=== PATIENT | female | born 1955 | race Caucasian/White ===

== ENCOUNTER 2018-02-12 20:17 | Observation (INO) ==
[2018-02-12] MEDS ORDERED: *HR* Morphine 2 MG/ML SYRINGE IVP ONE ×2 (20:38→21:46)
[2018-02-12] MEDS ORDERED: Aspirin 81 MG TAB.CHEW PO STA (20:38)
--- NOTE | 2018-02-12 20:40 | Emergency Department Note ---
Disposition Clinical Impression: Chest pain Disposition: Admitted As Inpatient Condition: Good Chest Pain HPI - General Chief Complaint: ED Chest Pain Stated Complaint: chest feels really heavy Time Seen by Provider: 02/12/18 20:25 Source: patient Mode of arrival: private vehicle Limitations: no limitations Vital Signs Reviewed: Yes Nursing Notes Reviewed: Yes - History of Present Illness HPI Narrative: 62-year-old white female presents emergency department via private vehicle complaining that her chest feels heavy. She says for the last 4 days she feels like she is having trouble getting fluid off her legs. She says she has a history of congestive heart failure in the past, but this evening started feeling like she was having heaviness in her chest. She says it feels like someone is pressing on her. She has had no known coronary artery disease. She says that she has seen a male infertility specialist in [place], but does not really see him that often. - Related Data Home Medications Medication Instructions Recorded Confirmed Furosemide [Lasix] 40 mg PO BID 12/31/15 02/12/18 Gabapentin [Neurontin] 600 mg PO QID 12/31/15 02/12/18 Glimepiride [Amaryl] 2 mg PO DAILY 12/31/15 02/12/18 Losartan [Cozaar] 25 mg PO DAILY 12/31/15 02/12/18 Pravastatin Sodium [Pravachol] 20 mg PO DAILY 12/31/15 02/12/18 Sertraline [Zoloft] 50 mg PO TID 12/31/15 02/12/18 Topiramate [Topamax] 50 mg PO DAILY 12/31/15 02/12/18 metFORMIN [Glucophage] 500 mg PO BID 12/31/15 02/12/18 Aclidinium [place] [Tudorza 400 mcg IH BID 10/27/16 02/12/18 Pressair] Dicyclomine [Bentyl] 20 mg PO TID 05/03/17 02/12/18 Previous Rx's Medication Instructions Recorded Ibuprofen [Motrin] 800 mg PO Q8HR #15 tablet 06/03/17 Tiotropium [Spiriva] 18 mcg IH DAILY #1 capsule 07/18/17 Allergies Allergy/AdvReac Type Severity Reaction Status Date / Time moxifloxacin [From Avelox] Allergy Rash Verified 02/12/18 20:33 acetaminophen [From Vicodin] AdvReac Gastrointestinal Verified 02/12/18 20:33 Upset hydrocodone [From Vicodin] AdvReac Gastrointestinal Verified 02/12/18 20:33 Upset All systems ED: reviewed and negative except as stated. Constitutional: Denies: fever, chills, weakness, weight change Eyes: Denies: eye pain, eye discharge, vision change ENT ED: Denies: ear pain, throat pain, dental pain, hearing loss, epistaxis, congestion, dysphagia Cardiovascular: Reports: chest pain Respiratory: Reports: dyspnea Gastrointestinal: Denies: abdominal pain, nausea, vomiting, diarrhea, constipation, hematemesis, melena, hematochezia Genitourinary: Denies: dysuria, frequency, hematuria, discharge Musculoskeletal: Denies: back pain, neck pain, arthralgia, myalgia Integumentary: Denies: rash, abrasion, lesions Neurological: Denies: headache, weakness, numbness, paresthesias, confusion, abnormal gait, vertigo Psychiatric: Denies: anxiety, depression, suicidal thoughts, homicidal thoughts , auditory hallucinations, visual hallucinations Endocrine: Denies: fatigue Hematological/Lymphatic: Denies: easy bleeding, easy bruising Allergic/Immunologic: Denies: facial swelling, urticaria Chest Pain PMH - Past Medical History Medical history: Reports: arthritis, CHF, COPD, coronary artery disease, diabetes, fibromyalgia, hepatitis Psychiatric history: Reports: anxiety, depression [employer] WORK[employer] history: Reports: no [employer] WORK[employer] history - Social History Smoking Status: Current every day smoker Alcohol use: Reports: none Drug use: Reports: none Physical Exam - General Limitations: no limitations General appearance: alert, in no apparent distress - Head Head exam: atraumatic, normocephalic, normal inspection - Eye Eye exam: Present: normal appearance, PERRL, EOMI - ENT ENT exam: normal exam, normal oropharynx, mucous membranes moist - Neck Neck exam: Present: normal inspection, full ROM, trachea midline - Chest Chest inspection: Present: normal inspection, symmetric chest wall rise, tenderness, other (Palpation of her anterior chest wall causes her some discomfort, but does not reproduce her symptoms.) - Respiratory Respiratory exam: Present: normal lung sounds bilaterally - Cardiovascular Cardiovascular exam: Present: regular rate, normal rhythm, normal heart sounds - Abdominal Exam Abdominal exam: Present: soft, Non-Tender. Absent: tenderness, distention, guarding, rebound, rigidity, organomegaly, pulsatile mass - Extremities Exam Extremities exam: Present: normal inspection, full ROM. Absent: tenderness, pedal edema - Back Exam Back exam: Present: normal inspection, full ROM. Absent: tenderness - Neurological Exam Neurological exam: Present: alert, oriented X3 - Psychiatric Psychiatric exam: Present: normal affect, normal mood - Skin Skin exam: Present: warm, dry, intact, normal color Course Course Narrative: The patient remained stable throughout her emergency department stay. Following her morphine and nitroglycerin the patient is pain-free at the time of disposition. Paged Dr. Adams at [phone]. The patient will be observed here in [place] Vital Signs Temperature 97.0 F L 02/12/18 20:33 Pulse Rate 94 02/12/18 20:33 Respiratory Rate 14 02/12/18 20:33 Blood Pressure 126/77 02/12/18 20:33 O2 Sat by Pulse Oximetry 97 02/12/18 20:33 Temperature 97.0 F L 02/12/18 20:33 Pulse Rate 85 02/12/18 22:54 Respiratory Rate 14 02/12/18 22:54 Blood Pressure 100/43 02/12/18 22:54 O2 Sat by Pulse Oximetry 94 02/12/18 22:54 Oxygen Delivery Oxygen Delivery Room Air Chest Pain - Lab Data Lab results reviewed: Yes I reviewed the patient's lab results. Result diagrams: 02/12/18 20:50 02/12/18 20:50 Lab Results 02/12/18 02/12/18 02/12/18 Range/Units 20:50 20:50 20:50 WBC 8.8 (4.3-11.1) K/mcL RBC 4.65 (3.82-4.97) M/mcL Hgb 13.6 (11.5-15.4) g/dL Hct 42.3 (35.3-44.9) % MCV 91.0 (83.0-100.0) fL MCH 29.2 (28.0-33.3) pg MCHC 32.2 (31.6-35.5) g/dL RDW 14.6 H (11.5-14.5) % Plt Count 201 (140-400) K/mcL MPV 9.8 (9.4-12.4) fL Immature Gran % 0.5 (0-4) % Seg Neutrophils % 61.6 % Lymphocytes % 28.5 % Monocytes % 7.6 % Eosinophils % 1.2 % Basophils % 0.6 % Neutrophils # 5.4 (1.6-8.9) K/mcL Lymphocytes # 2.5 (0.6-4.6) K/mcL Monocytes # 0.7 (0.0-1.3) K/mcL Eosinophils # 0.1 (0.0-0.6) K/mcL Basophils # 0.1 (0.0-0.2) K/mcL PT (9.4-12.1) Seconds INR Sodium 137 (136-145) mEq/L Potassium 4.1 (3.5-5.1) mEq/L Chloride 101 (98-107) mEq/L Carbon Dioxide 27 (23-29) mEq/L BUN 17 (8-23) mg/dL Creatinine 0.87 (0.60-1.20) mg/dL Est GFR ( Amer) > 60 (> 60) Est GFR (Non-Af Amer) > 60 (> 60) BUN/Creatinine Ratio 20 (6-26) Glucose 156 H (70-105) mg/dL Calculated Osmolality 289 (280-300) Calcium 9.5 (8.6-10.3) mg/dL Total Bilirubin 0.4 (0.3-1.0) mg/dL AST 74 H (13-39) Units/L ALT 56 H (7-52) Units/L Alkaline Phosphatase 108 H (34-104) Units/L Troponin I (< 0.04) ng/mL B-Natriuretic Peptide 98 (Less than 100) pg/mL Serum Total Protein 7.1 (6.4-8.9) g/dL Albumin 4.0 (3.5-5.7) g/dL Globulin 3.1 (2.4-3.5) g/dL Albumin/Globulin Ratio 1.3 (1.1-2.2) 02/12/18 02/12/18 Range/Units 20:50 20:50 WBC (4.3-11.1) K/mcL RBC (3.82-4.97) M/mcL Hgb (11.5-15.4) g/dL Hct (35.3-44.9) % MCV (83.0-100.0) fL MCH (28.0-33.3) pg MCHC (31.6-35.5) g/dL RDW (11.5-14.5) % Plt Count (140-400) K/mcL MPV (9.4-12.4) fL Immature Gran % (0-4) % Seg Neutrophils % % Lymphocytes % % Monocytes % % Eosinophils % % Basophils % % Neutrophils # (1.6-8.9) K/mcL Lymphocytes # (0.6-4.6) K/mcL Monocytes # (0.0-1.3) K/mcL Eosinophils # (0.0-0.6) K/mcL Basophils # (0.0-0.2) K/mcL PT 12.1 (9.4-12.1) Seconds INR 1.1 Sodium (136-145) mEq/L Potassium (3.5-5.1) mEq/L Chloride (98-107) mEq/L Carbon Dioxide (23-29) mEq/L BUN (8-23) mg/dL Creatinine (0.60-1.20) mg/dL Est GFR ( Amer) (> 60) Est GFR (Non-Af Amer) (> 60) BUN/Creatinine Ratio (6-26) Glucose (70-105) mg/dL Calculated Osmolality (280-300) Calcium (8.6-10.3) mg/dL Total Bilirubin (0.3-1.0) mg/dL AST (13-39) Units/L ALT (7-52) Units/L Alkaline Phosphatase (34-104) Units/L Troponin I < 0.03 (< 0.04) ng/mL B-Natriuretic Peptide (Less than 100) pg/mL Serum Total Protein (6.4-8.9) g/dL Albumin (3.5-5.7) g/dL Globulin (2.4-3.5) g/dL Albumin/Globulin Ratio (1.1-2.2) - Radiology Data Radiology results reviewed: Yes I reviewed the patient's radiology results. One view chest: IMPRESSION: 1. No focal airspace disease identified. D/ / Reggie Grier MD / Reggie Grier MD Interpreting Provider: Reggie Grier MD - EKG Data EKG attestation: Yes I reviewed and interpreted this EKG. EKG results narrative: Twelve-lead EKG showed a right bundle-branch block, left axis deviation, rate 97 , no acute ST elevation or depression appreciated. Heart Score - Score History: Slightly Suspicious EKG: Normal Age: 45-65 Risk Factors: 1-2 risk factors Troponin: Less than normal limit HEART Score Total: 2
[2018-02-12 20:56] LABS: Basophils # 0.1 K/mcL (0.0-0.2); Basophils % 0.6 %; Eosinophils # 0.1 K/mcL (0.0-0.6); Eosinophils % 1.2 %; Hematocrit 42.3 % (35.3-44.9); Hemoglobin 13.6 g/dL (11.5-15.4); Immature Granulocytes % 0.5 % (0-4); Lymphocytes # 2.5 K/mcL (0.6-4.6); Lymphocytes % 28.5 %; Mean Corpuscular HGB Conc 32.2 g/dL (31.6-35.5); Mean Corpuscular Hemoglobin 29.2 pg (28.0-33.3); Mean Platelet Volume 9.8 fL (9.4-12.4); Monocytes # 0.7 K/mcL (0.0-1.3); Monocytes % 7.6 %; Neutrophils # 5.4 K/mcL (1.6-8.9); Platelet Count 201 K/mcL (140-400); Red Blood Count 4.65 M/mcL (3.82-4.97); Red Cell Distribution Width 14.6 % (11.5-14.5); Segmented Neutrophils % 61.6 %
[2018-02-12 21:03] LABS: INR 1.1; Prothrombin Time 12.1 Seconds (9.4-12.1)
[2018-02-12 21:20] LABS: Alanine Aminotransferase 56 Units/L (7-52); Albumin/Globulin Ratio 1.3 (1.1-2.2); Alkaline Phosphatase 108 Units/L (34-104); Aspartate Amino Transferase 74 Units/L (13-39); BUN/Creatinine Ratio 20 (6-26); Bilirubin,Total 0.4 mg/dL (0.3-1.0); Blood Urea Nitrogen 17 mg/dL (8-23); Calcium 9.5 mg/dL (8.6-10.3); Carbon Dioxide 27 mEq/L (23-29); Chloride 101 mEq/L (98-107); Globulin 3.1 g/dL (2.4-3.5); Glucose 156 mg/dL (70-105); Osmolality,Calculated 289 (280-300); Potassium 4.1 mEq/L (3.5-5.1); Sodium 137 mEq/L (136-145); Total Protein 7.1 g/dL (6.4-8.9); eGFR For African Americans > 60 (> 60); eGFR For Non-African Americans > 60 (> 60)
[2018-02-12] MEDS ORDERED: Nitroglycerin 1 INCH/GM PACKET TP ONE (21:46)
[2018-02-12] MEDS ORDERED: Naloxone 0.4 MG/ML INJ IVP PRN (23:10)
[2018-02-13] MEDS ORDERED: Ibuprofen 800 MG TABLET PO SCH
[2018-02-13] MEDS ORDERED: Tolterodine LA (24 HR) 2 MG CAP.ER.24H PO SCH (00:20)
[2018-02-13] MEDS ORDERED: Ibuprofen 800 MG TABLET PO PRN (00:21)
[2018-02-13] MEDS: Gabapentin 300 MG CAPSULE PO SCH ×2 (00:35→08:50)
[2018-02-13 03:36] LABS: Basophils # 0.1 K/mcL (0.0-0.2); Basophils % 0.6 %; Eosinophils # 0.1 K/mcL (0.0-0.6); Eosinophils % 1.4 %; Hematocrit 38.3 % (35.3-44.9); Hemoglobin 12.2 g/dL (11.5-15.4); Immature Granulocytes % 0.4 % (0-4); Lymphocytes # 2.9 K/mcL (0.6-4.6); Lymphocytes % 32.2 %; Mean Corpuscular HGB Conc 31.9 g/dL (31.6-35.5); Mean Corpuscular Hemoglobin 29.3 pg (28.0-33.3); Mean Corpuscular Volume 92.1 fL (83.0-100.0); Mean Platelet Volume 9.5 fL (9.4-12.4); Monocytes # 0.7 K/mcL (0.0-1.3); Monocytes % 8.2 %; Neutrophils # 5.1 K/mcL (1.6-8.9); Platelet Count 197 K/mcL (140-400); Red Blood Count 4.16 M/mcL (3.82-4.97); Red Cell Distribution Width 14.7 % (11.5-14.5); Segmented Neutrophils % 57.2 %
[2018-02-13 03:38] LABS: INR 1.1; Prothrombin Time 12.3 Seconds (9.4-12.1)
[2018-02-13] MEDS ORDERED: *HR* Enoxaparin 40 MG/0.4 ML SYRINGE SQ SCH (07:00)
[2018-02-13] MEDS ORDERED: *HR* Metformin 500 MG TABLET PO SCH (08:00)
[2018-02-13] MEDS ORDERED: Furosemide 40 MG TABLET PO SCH ×2 (08:00→09:00)
[2018-02-13] MEDS ORDERED: *HR* Glimepiride 2 MG TABLET PO SCH (08:00)
[2018-02-13 08:33] VITALS: BP 108/67
[2018-02-13] MEDS ORDERED: Tiotropium 18 MCG inhalation IH SCH (09:00)
[2018-02-13] MEDS ORDERED: Gabapentin 300 MG CAPSULE PO SCH (09:00)
[2018-02-13] MEDS ORDERED: Topiramate 25 MG TABLET PO SCH (09:00)
[2018-02-13] MEDS ORDERED: Tudorza Pressair 400 MCG IH SCH (10:00)
--- NOTE | 2018-02-13 10:35 | Internal Med History&Physical ---
Date of Encounter: 02/13/18 Time of Encounter: 09:00 Assessment and Plan (1) Chest pain Current visit: Yes Status: Acute Since repeat EKG is unchanged and she has had no pressure as well as negative troponins 2, if the third troponin is negative will discharge to home and outpatient follow-up. She needs to have a stress test and echocardiogram to evaluate but we are unable to obtain these, here. I suspect that all she was experiencing was a worsening of her congestive heart failure caused by her trip to [place]. Qualifiers: Chest pain type: unspecified Qualified Code(s): R07.9 - Chest pain, unspecified (2) Congestive heart failure Current visit: Yes Status: Acute Qualifiers: Heart failure type: unspecified Heart failure chronicity: chronic Qualified Code(s): I50.9 - Heart failure, unspecified (3) Diabetes mellitus Current visit: Yes Status: Acute This is stable per patient no continue home regimen. 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 No known cirrhosis. Follow-up per primary care physician. Qualifiers: Viral hepatitis chronicity: chronic Hepatic coma status: without hepatic coma Qualified Code(s): B18.2 - Chronic viral hepatitis C (5) Right bundle branch block Current visit: Yes Status: Acute Apparently chronic. Internal Medicine - H&P: HPI Chief complaint: Chest heaviness. Admitted From: Home Plans for Post Hospital Care: Home History of present illness: Ms. Garcia is a 62 year old female with history of congestive heart failure who has 4 days of worsening edema at her lower extremities. This is been present for longer than that, if he considered that she had it for several days on a mild scale, before her trip to [place]. She then spent a 4 or 5 days. In [place] where she ate a little more than is her usual in terms. The edema was slightly worse there but severe after a flight back. She had no chest pressure during that time. She states that at about noon yesterday, she had pressure on her chest which felt like "an elephant sitting on my chest." This was intermittent and progressive, radiated to Left arm but was associated with dyspnea and diaphoresis, intermittently. She knows of no cough or respiratory symptoms, diarrhea, other infectious symptoms, fevers or chills. The chest pressure was relieved by medications in the emergency room and has had absolutely none while in the hospital. She has a history of heart failure, about 4 or 5 years ago, with a stress test and an echocardiogram gram at that point. She takes Lasix 120 mg in the morning and 40 mg in the evening, for this. She had been followed by Dr. Avilez (skyelling?) at [facility] but could not afford her co-pay so she has been on the following with her primary care physician, Dr. Ayoub. She has no history of coronary artery disease. She has a history of hypertension for years, for which she takes valsartan. She has hyperlipidemia. She was diagnosed with sleep apnea about 2 years ago and has been on CPAP since then. She has no history of arrhythmia. She has been diabetic on Glucophage she thinks 800 mg twice a day but no insulin. She has hepatitis C that has been treated twice without success. She knows of no cirrhosis or liver problems, related. 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 She denies alcohol use. She continues to smoke. I spoke at length with her about discontinuing smoking and having her and grandson no longer smoke in the house. I also informed her that she needed to get rid of all of the smoking apparatus functions. She is status post hysterectomy when she was in her 30s or 40s. She states this was complete. She has also had a cholecystectomy without cholecystitis. . She has been markedly overweight all of her life. She has early cataracts in both eyes. Patient has no complaint of chest discomfort, dyspnea, orthopnea, breathing problems, palpitations, nausea or vomiting, constipation or diarrhea, other changes in bowel habits, heartburn, difficulty with urination, kidney problems or kidney stones, fevers chills or sweats, rash or itching, seizures, headache or lightheadedness, heat or cold intolerance, blood problems or anemia, or other new complaints, except as mentioned above. Review of systems is otherwise negative. Past Med Surg Social Fam HX - Past Medical History Medical history: arthritis, CHF, COPD, coronary artery disease, diabetes, fibromyalgia, hepatitis, hyperlipidemia, hypertension Psychiatric history: anxiety, depression - Past Surgical History Surgical History: cholecystectomy, hysterectomy - Social History Smoking Status: Current every day smoker Packs per day: 1 pack Smokeless Tobacco Status: No Alcohol use: none Drug use: none - Family History Mother Living Status: Hx Family Endocrine Disorder: Yes Father Living Status: Hx Family Cancer: Yes Internal Medicine - H&P: Meds Furosemide [Lasix] 120 mg PO 0900 12/31/15 [History] Gabapentin [Neurontin] 600 mg PO QID 12/31/15 [History] Glimepiride [Amaryl] 2 mg PO DAILY 12/31/15 [History] Losartan [Cozaar] 25 mg PO DAILY 12/31/15 [History] Pravastatin Sodium [Pravachol] 20 mg PO DAILY 12/31/15 [History] Sertraline [Zoloft] 150 mg PO DAILY 12/31/15 [History] metFORMIN [Glucophage] 500 mg PO BID 12/31/15 [History] Tiotropium [Spiriva] 18 mcg IH DAILY #1 capsule 07/18/17 [Rx] Ibuprofen [Motrin] 800 mg PO Q8HR PRN 02/12/18 [History] Tolterodine LA (24 HR) [Detrol LA] 4 mg PO DAILY 02/13/18 [History] 3 Allergy/AdvReac Type Severity Reaction Status Date / Time moxifloxacin [From Avelox] Allergy Rash Verified 02/12/18 20:33 acetaminophen [From Vicodin] AdvReac Gastrointestinal Verified 02/12/18 20:33 Upset hydrocodone [From Vicodin] AdvReac Gastrointestinal Verified 02/12/18 20:33 Upset All Systems PM: A 10-system review of systems was performed and is negative for pertinent findings except as documented above in the HPI. - Constitutional Vitals: Temp Pulse Resp BP Pulse Ox 98.1 F 67 16 108/67 95 02/13/18 08:00 02/13/18 08:00 02/13/18 08:00 02/13/18 08:00 02/13/18 08:00 Exam: Examination: (Except as mentioned above): General: In no apparent distress, alert and oriented 3. Head: Atraumatic and normocephalic. Eyes: Extraocular muscles are intact, pupils equal round and reactive to light and accommodation. Sclerae anicteric. Ears: External ears are normal to inspection and hearing is grossly normal. Nose: Patent without lesion noted. Mouth: No intraoral lesions seen. Dentition is unremarkable. Neck: Supple with trachea midline. There is no thyromegaly or adenopathy and carotids are 2+ without bruit heard. Respiratory: No use of accessory muscles. Lungs are clear throughout. Normal airflow. Cardiovascular: Regular rate and rhythm without murmur appreciated. Abdomen: Bowel sounds are normal. No hepatosplenomegaly masses or tenderness. Morbidly obese and therefore difficult to palpate deeply. Extremities: No cyanosis or clubbing. She has 1-2+ edema, at ankles bilaterally. No cord or calf tenderness. Nothing to suggest cellulitis.. Neurological: A and O 3. Cranial nerves II through XII are intact. No focal deficits and no abnormal movements or postures. Skin: Warm and non-diaphoretic with no lesions noted. Breasts, pelvic and rectal: Not examined. Internal Med - H&P Results - Labs CBC & Chem 7: 02/13/18 03:12 02/12/18 20:50 Labs: Short CBC 02/13/18 Range/Units 03:12 WBC 9.0 (4.3-11.1) K/mcL Hgb 12.2 (11.5-15.4) g/dL Hct 38.3 (35.3-44.9) % Plt Count 197 (140-400) K/mcL Neutrophils # 5.1 (1.6-8.9) K/mcL Cardiac Enzymes 02/13/18 02/13/18 Range/Units 03:12 08:58 Troponin I < 0.03 < 0.03 (< 0.04) ng/mL
--- NOTE | 2018-02-13 11:07 | Discharge Summary ---
- NOTES TO OUTPATIENT PROVIDER Notes to Outpatient Provider: Patient is instructed to follow-up with cardiology. She wants to meet with edgerman in [facility] in anticipation of her left knee pain and probable left knee replacement by johanna Andrade. This will be called to her house, per [facility] cardiology. Orders not resulted at time of discharge: Pending orders 02/13/18 10:33 EKG [ECG 12 lead ECG] [ECG] Routine Date of Encounter: 02/13/18 Time of Encounter: 11:06 - Discharge Diagnosis (1) Chest pain Priority: Primary Status: Acute Qualifiers: Chest pain type: unspecified Qualified Code(s): R07.9 - Chest pain, unspecified (2) Congestive heart failure Priority: Secondary Status: Acute Qualifiers: Heart failure type: unspecified Heart failure chronicity: chronic Qualified Code(s): I50.9 - Heart failure, unspecified (3) Diabetes mellitus Priority: Secondary Status: Acute Qualifiers: Diabetes mellitus type: type 2 Diabetes mellitus skilled nursing insulin use: without intermediate card tender use Diabetes mellitus complication status: with unspecified complications Qualified Code(s): E11.8 - Type 2 diabetes mellitus with unspecified complications (4) Hepatitis C Priority: Secondary Status: Acute Qualifiers: Viral hepatitis chronicity: chronic Hepatic coma status: without hepatic coma Qualified Code(s): B18.2 - Chronic viral hepatitis C (5) Right bundle branch block Priority: Secondary Status: Acute Hospital course: Ms. Garcia is a 62 year old female Discharge discussed with: patient Time spent discussing smoking cessation with patient: 3 to 10 minutes - Time Spent with Patient Total time spent providing and/or coordinating discharge services: Specific discharge activities: Patient instructed to take 80 mg of Lasix in the evening until seen by her family physician, in a week. - Discharge Medications Prescriptions: Furosemide Oral Soln [Lasix] 80 mg PO DAILY #1 [facility] [place] Home Medications: Furosemide [Lasix] 120 mg PO 0900 12/31/15 [History] Gabapentin [Neurontin] 600 mg PO QID 12/31/15 [History] Glimepiride [Amaryl] 2 mg PO DAILY 12/31/15 [History] Losartan [Cozaar] 25 mg PO DAILY 12/31/15 [History] Pravastatin Sodium [Pravachol] 20 mg PO DAILY 12/31/15 [History] Sertraline [Zoloft] 150 mg PO DAILY 12/31/15 [History] metFORMIN [Glucophage] 500 mg PO BID 12/31/15 [History] Tiotropium [Spiriva] 18 mcg IH DAILY #1 capsule 07/18/17 [Rx] Ibuprofen [Motrin] 800 mg PO Q8HR PRN 02/12/18 [History] Furosemide Oral Soln [Lasix] 80 mg PO DAILY #1 udc 02/13/18 [Rx] Tolterodine LA (24 HR) [Detrol LA] 4 mg PO DAILY 02/13/18 [History] Allergies/Adverse Reactions: 3 Allergy/AdvReac Type Severity Reaction Status Date / Time moxifloxacin [From Avelox] Allergy Rash Verified 02/12/18 20:33 acetaminophen [From Vicodin] AdvReac Gastrointestinal Verified 02/12/18 20:33 Upset hydrocodone [From Vicodin] AdvReac Gastrointestinal Verified 02/12/18 20:33 Upset Date of admission: 02/12/18 23:11 Primary care physician: Daniel Ayoub CNP - Constitutional Vitals: Temp Pulse Resp BP Pulse Ox 98.1 F 67 16 108/67 95 02/13/18 08:00 02/13/18 08:00 02/13/18 08:00 02/13/18 08:00 02/13/18 08:00 - Patient Status Disposition: Home, Self-Care Condition: Good - Discharge Instructions Instructions: Chest Pain (DC) Follow Up With: Daniel Ayoub CNP [Primary Care Provider] - 02/19/18 3:20 pm (follow up appointment for chest pain)
--- NOTE | 2018-02-13 23:27 | Electrocardiograph Report ---
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
--- NOTE | 2018-02-16 14:46 | Electrocardiograph Report ---
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
== END 2018-02-13 11:40 | disposition home or self-care (01) ==
LOC: INPGRE 20:17 → EMEROOGRE 20:17 → INPGRE 23:18